=== PATIENT | male | born 1995 | race Caucasian/White ===

== ENCOUNTER 2023-09-17 09:50 | Outpatient (CLI) | payer MEDICAID ==
[2023-09-17] MEDS ORDERED: iohexol 300mg/ml 100ml inj. ONE (10:06)
== END 2023-09-17 23:59 | disposition home or self-care (01) ==
LOC: RAD 09:50
PROVIDERS: ATTEND Specialist
DX: R16.2 Hepatomegaly with splenomegaly, not elsewhere classified (principal); K85.81 Other acute pancreatitis with uninfected necrosis
CPT/HCPCS: 74178; J3490; Q9967